=== PATIENT | female | born 1970 | race Caucasian/White ===

== ENCOUNTER → 2018-10-13 15:09 | Outpatient (CLI) | payer OTHER ==
[2015-11-07 08:26] VITALS: BMI 28.6
[~2018-10-13 15:09] MED LIST: B C POWDER PO
== END | disposition home or self-care (01) ==
LOC: D.CT 15:09
PROVIDERS: ATTEND Family Medicine
DX: M54.2 Cervicalgia (principal)

== ENCOUNTER → 2018-10-28 17:10 | Outpatient (CLI) | payer OTHER ==
[2015-11-07 08:26] VITALS: BMI 28.6
== END | disposition home or self-care (01) ==
LOC: D.MAMMO 11:15
PROVIDERS: ATTEND Family Medicine
DX: Z12.31 Encounter for screening mammogram for malignant neoplasm of breast (principal)